=== PATIENT | female | born 1985 | race Caucasian/White ===

== ENCOUNTER 2020-12-20 17:44 | Emergency (ER) | payer MEDICAID, OTHER ==
[~2020-12-20] VITALS: Ht 160 cm; Wt 81.0 kg
[~2020-12-20 17:44] MED LIST: LEVO500T2 PO; TAM75 PO
[2020-12-20 17:57] VITALS: BP 113/72
== END 2020-12-20 18:55 | disposition left against medical advice (07) ==
LOC: ER 17:44
DX: Z53.21 Procedure and treatment not carried out due to patient leaving prior to being seen by health care provider (principal)

== ENCOUNTER 2020-12-24 12:28 | Inpatient (IN) | payer MEDICAID, OTHER ==
[~2020-12-24] VITALS: Ht 157.5 cm; Wt 77.6 kg
[2020-12-24 13:19] LABS: BG BASE EXCESS 2.7 mmol/L (-2.0-2.0); BG CARBOXYHEMOGLOBIN 0.3 % (0.5-1.5); BG DEOXYHEMOGLOBIN 6.7 % (0.0-5.0); BG FRACTION INSPIRED OXYGEN 36; BG HCO3 ACT 26.5 mmol/L (22.0-26.0); BG METHEMOGLOBIN 0.3 % (0.0-1.5); BG OXYGEN SATURATION 93.3 % (92.0-98.5); BG OXYHEMOGLOBIN 92.7 % (94.0-97.0); BG PCO2 37.4 mmHg (35.0-45.0); BG PH 7.468 (7.350-7.450); BG PO2 66.5 mmHg (75.0-100.0); BG SAMPLE SITE RIGHT RADIAL; BG TOTAL HEMOGLOBIN 9.9 g/dL (12.0-18.0); BG VENT MODE NASAL CANNULA
[2020-12-24] MEDS ORDERED: SODIUM CHLORIDE 0.9% 1,000 ML IV ONE (13:30)
[2020-12-24 14:07] LABS: CHLORIDE 99 mEq/L (98-107)
[2020-12-24 14:15] LABS: BASOPHILS % 0.2 % (0.0-2.0); HEMATOCRIT. 28.9 % (36.0-48.0); HEMOGLOBIN. 9.1 g/dL (12.0-16.0); LYMPHOCYTES % 23.5 % (20.0-50.0); MEAN CORPUSCULAR HEMOGLOBIN 18.6 pg (28.0-32.0); MEAN PLATELET VOLUME 9.4 fl (7.4-10.4); MONOCYTES % 3.9 % (2.0-8.0); NEUTROPHILS % 72.4 % (40.0-76.0); PLATELET 202 x1000/uL (130-400); RED CELL DISTRIBUTION WIDTH 18.6 % (11.6-14.6)
[2020-12-24] MEDS ORDERED: DEXAMETHASONE 4MG/ML 1ML VIAL IV ONE (14:45)
[2020-12-24 15:57] LABS: PLATELET ESTIMATE NORMAL
[2020-12-24] MEDS: ACETAMINOPHEN 325MG TABLET PO PRN (16:50)
[2020-12-24] MEDS ORDERED: ACETAMINOPHEN 325MG TABLET PO PRN (18:00)
[2020-12-24] MEDS ORDERED: MAGNESIUM/ALUMINUM HYDROXIDE/SIMETHICONE 30ML UDC PO PRN (18:00)
[2020-12-24] MEDS ORDERED: CLONIDINE 0.1MG TABLET PO PRN (18:00)
[2020-12-24] MEDS ORDERED: LORAZEPAM 2MG/ML CPJ IV PRN (18:00)
[2020-12-24] MEDS ORDERED: DOCUSATE SODIUM 100MG CAPSULE PO PRN (18:00)
[2020-12-24] MEDS ORDERED: ONDANSETRON HCL 4MG/2ML INJ IV PRN (18:00)
[2020-12-24] MEDS ORDERED: AZITHROMYCIN 500 MG in DEXT 5% WATER 250 ML IV NR (18:15)
[2020-12-24] MEDS ORDERED: CEFTRIAXONE 1 G PREMIX 50 ML IV SCH (19:00)
[2020-12-24] MEDS ORDERED: NALOXONE HCL 0.4MG/ML VIAL IV PRN (19:15)
[2020-12-24] MEDS: ENOXAPARIN 30MG/0.3ML SYR SUBCUT SCH (21:00)
[2020-12-24 21:15] VITALS: BP 118/72
[2020-12-24] MEDS: HYDROCODONE/ACETAMINOPHEN 5/325MG TABLET PO PRN (22:41)
[2020-12-25 00:05] VITALS: BP 101/58
[2020-12-25 04:00] VITALS: BP 103/64
[2020-12-25] MEDS: HYDROCODONE/ACETAMINOPHEN 5/325MG TABLET PO PRN ×4 (07:41→23:41)
[2020-12-25 07:59] LABS: BASOPHILS % 0.1 % (0.0-2.0); HEMATOCRIT. 28.2 % (36.0-48.0); HEMOGLOBIN. 8.7 g/dL (12.0-16.0); LYMPHOCYTES % 14.4 % (20.0-50.0); MEAN CORPUSCULAR HEMOGLOBIN 18.5 pg (28.0-32.0); MEAN CORPUSCULAR VOLUME 59.5 fL (81.0-99.0); MEAN PLATELET VOLUME 9.1 fl (7.4-10.4); MONOCYTES % 5.4 % (2.0-8.0); NEUTROPHILS % 80.1 % (40.0-76.0); PLATELET 205 x1000/uL (130-400); RED BLOOD CELL COUNT 4.73 mill/uL (4.2-5.4); RED CELL DISTRIBUTION WIDTH 18.9 % (11.6-14.6)
[2020-12-25 08:00] VITALS: BP 98/58
[2020-12-25] MEDS: AZITHROMYCIN 500MG in DEXTROSE 5% WATER 250ML IV SCH (08:11)
[2020-12-25] MEDS: ENOXAPARIN 30MG/0.3ML SYR SUBCUT SCH ×2 (08:11→21:00)
[2020-12-25] MEDS: CEFTRIAXONE 1,000 MG in DEXTROSE 5% WATER 50 ML IV SCH (08:11)
[2020-12-25] MEDS: DEXAMETHASONE 10 MG/ML VIAL IV SCH (08:11)
[2020-12-25 08:16] LABS: CHLORIDE 103 mEq/L (98-107)
[2020-12-25] MEDS ORDERED: THROAT LOZENGES-BENZOCAINE/MENTH/CETYLPYRD CL LOZENGES MM PRN (09:15)
[2020-12-25 09:51] LABS: BG BASE EXCESS 0.7 mmol/L (-2.0-2.0); BG CARBOXYHEMOGLOBIN 0.3 % (0.5-1.5); BG DEOXYHEMOGLOBIN 26.2 % (0.0-5.0); BG FRACTION INSPIRED OXYGEN 21; BG HCO3 ACT 24.8 mmol/L (22.0-26.0); BG METHEMOGLOBIN 0.5 % (0.0-1.5); BG OXYGEN SATURATION 73.6 % (92.0-98.5); BG PCO2 37.4 mmHg (35.0-45.0); BG PH 7.439 (7.350-7.450); BG TOTAL HEMOGLOBIN 9.5 g/dL (12.0-18.0); BG VENT MODE ROOM AIR
[2020-12-25 12:00] VITALS: BP 105/65
[2020-12-25] MEDS: ACETAMINOPHEN 325MG TABLET PO PRN (13:34)
[2020-12-25 16:00] VITALS: BP 106/58
[2020-12-25 20:00] VITALS: BP 109/67
[2020-12-25] MEDS: ALBUTEROL 6.7GM HFA INHALER ORI PRN (23:47)
[2020-12-26 00:21] VITALS: BP 116/69
[2020-12-26] MEDS: HYDROCODONE/ACETAMINOPHEN 5/325MG TABLET PO PRN ×2 (03:26→08:39)
[2020-12-26 04:00] VITALS: BP 107/65
[2020-12-26] MEDS: ACETAMINOPHEN 325MG TABLET PO PRN ×2 (05:46→14:30)
[2020-12-26 08:00] VITALS: BP 111/60
[2020-12-26] MEDS: AZITHROMYCIN 500MG in DEXTROSE 5% WATER 250ML IV SCH (08:03)
[2020-12-26] MEDS: ALBUTEROL 6.7GM HFA INHALER ORI PRN ×2 (08:03→14:36)
[2020-12-26] MEDS: CEFTRIAXONE 1,000 MG in DEXTROSE 5% WATER 50 ML IV SCH (08:03)
[2020-12-26] MEDS: ENOXAPARIN 30MG/0.3ML SYR SUBCUT SCH ×3 (08:04→21:02)
[2020-12-26] MEDS: DEXAMETHASONE 10 MG/ML VIAL IV SCH (08:04)
[2020-12-26 12:00] VITALS: BP 111/60
[2020-12-26] MEDS ORDERED: DEXTROSE 50% WATER 50ML SYRINGE IV PRN (13:15)
[2020-12-26] MEDS: BLOOD SUGAR DIAGNOSTIC STRIP TEST SCH ×3 (13:30→21:04)
[2020-12-26] MEDS: GUAIFENESIN 200MG/10ML SUGAR FREE UDC PO PRN (14:36)
[2020-12-26] MEDS: INSULIN LISPRO 100 UNITS/ML SUBCUT SCH ×3 (15:47→21:06)
[2020-12-26 16:00] VITALS: BP 121/63
[2020-12-26 20:00] VITALS: BP 103/66
[2020-12-26] MEDS: INSULIN GLARGINE UD 100 UNITS/ML SYR SUBCUT SCH (21:03)
[2020-12-27] VITALS: BP 108/57
[2020-12-27 04:00] VITALS: BP 97/52
[2020-12-27] MEDS: BLOOD SUGAR DIAGNOSTIC STRIP TEST SCH ×4 (08:07→21:00)
[2020-12-27] MEDS: AZITHROMYCIN 500MG in DEXTROSE 5% WATER 250ML IV SCH (08:32)
[2020-12-27] MEDS: CEFTRIAXONE 1,000 MG in DEXTROSE 5% WATER 50 ML IV SCH (08:32)
[2020-12-27] MEDS: ENOXAPARIN 30MG/0.3ML SYR SUBCUT SCH ×2 (08:33→22:02)
[2020-12-27] MEDS: ACETAMINOPHEN 325MG TABLET PO PRN ×2 (08:35→14:31)
[2020-12-27] MEDS: DEXAMETHASONE 10 MG/ML VIAL IV SCH (09:00)
[2020-12-27] MEDS: INSULIN LISPRO 100 UNITS/ML SUBCUT SCH ×4 (10:16→22:04)
[2020-12-27 12:00] VITALS: BP 111/72
[2020-12-27] MEDS: GUAIFENESIN 200MG/10ML SUGAR FREE UDC PO PRN (14:30)
[2020-12-27 20:00] VITALS: BP 110/70
[2020-12-27] MEDS: INSULIN GLARGINE UD 100 UNITS/ML SYR SUBCUT SCH (22:03)
[2020-12-27] MEDS: HYDROCODONE/ACETAMINOPHEN 5/325MG TABLET PO PRN (23:13)
[2020-12-28] VITALS: BP 100/55
[2020-12-28 04:00] VITALS: BP 97/50
[2020-12-28 08:00] VITALS: BP 108/52
[2020-12-28] MEDS: BLOOD SUGAR DIAGNOSTIC STRIP TEST SCH ×4 (08:31→20:56)
[2020-12-28] MEDS: AZITHROMYCIN 500MG in DEXTROSE 5% WATER 250ML IV SCH (08:57)
[2020-12-28] MEDS: CEFTRIAXONE 1,000 MG in DEXTROSE 5% WATER 50 ML IV SCH (08:57)
[2020-12-28] MEDS: DEXAMETHASONE 10 MG/ML VIAL IV SCH (08:58)
[2020-12-28] MEDS: ACETAMINOPHEN 325MG TABLET PO PRN ×2 (08:58→17:28)
[2020-12-28] MEDS: ENOXAPARIN 30MG/0.3ML SYR SUBCUT SCH ×2 (08:58→20:56)
[2020-12-28] MEDS: INSULIN LISPRO 100 UNITS/ML SUBCUT SCH ×4 (09:00→20:56)
[2020-12-28] MEDS: GUAIFENESIN 200MG/10ML SUGAR FREE UDC PO PRN ×2 (09:03→17:28)
[2020-12-28] MEDS: HYDROCODONE/ACETAMINOPHEN 5/325MG TABLET PO PRN (09:04)
[2020-12-28 12:00] VITALS: BP 109/51
[2020-12-28 16:00] VITALS: BP 113/64
[2020-12-28 20:00] VITALS: BP 105/63
[2020-12-28] MEDS: INSULIN GLARGINE UD 100 UNITS/ML SYR SUBCUT SCH (20:57)
[2020-12-29] VITALS: BP 110/62
[2020-12-29] MEDS: HYDROCODONE/ACETAMINOPHEN 5/325MG TABLET PO PRN ×3 (00:23→20:49)
[2020-12-29 04:00] VITALS: BP 95/55
[2020-12-29] MEDS: BLOOD SUGAR DIAGNOSTIC STRIP TEST SCH ×4 (06:04→20:37)
[2020-12-29] MEDS: ACETAMINOPHEN 325MG TABLET PO PRN ×2 (07:53→20:48)
[2020-12-29] MEDS: INSULIN LISPRO 100 UNITS/ML SUBCUT SCH ×4 (07:54→20:39)
[2020-12-29] MEDS: DEXAMETHASONE 10 MG/ML VIAL IV SCH (07:54)
[2020-12-29] MEDS: ENOXAPARIN 30MG/0.3ML SYR SUBCUT SCH ×2 (07:54→20:37)
[2020-12-29] MEDS: GUAIFENESIN 200MG/10ML SUGAR FREE UDC PO PRN (07:55)
[2020-12-29 16:00] VITALS: BP 97/41
[2020-12-29 20:00] VITALS: BP 117/68
[2020-12-29] MEDS: INSULIN GLARGINE UD 100 UNITS/ML SYR SUBCUT SCH (20:38)
[2020-12-30] VITALS: BP 126/61
[2020-12-30 04:00] VITALS: BP 125/66
[2020-12-30] MEDS: HYDROCODONE/ACETAMINOPHEN 5/325MG TABLET PO PRN (04:34)
[2020-12-30] MEDS: BLOOD SUGAR DIAGNOSTIC STRIP TEST SCH ×4 (06:41→21:20)
[2020-12-30 08:00] VITALS: BP 106/50
[2020-12-30] MEDS: INSULIN LISPRO 100 UNITS/ML SUBCUT SCH ×4 (08:10→21:21)
[2020-12-30] MEDS: ALBUTEROL 6.7GM HFA INHALER ORI PRN ×2 (08:45→21:28)
[2020-12-30] MEDS: ENOXAPARIN 30MG/0.3ML SYR SUBCUT SCH ×2 (09:49→21:21)
[2020-12-30] MEDS: ACETAMINOPHEN 325MG TABLET PO PRN ×2 (09:49→14:10)
[2020-12-30] MEDS: DEXAMETHASONE 10 MG/ML VIAL IV SCH (09:49)
[2020-12-30] MEDS: GUAIFENESIN 200MG/10ML SUGAR FREE UDC PO PRN ×2 (09:49→14:07)
[2020-12-30 12:00] VITALS: BP 110/58
[2020-12-30 16:00] VITALS: BP 102/53
[2020-12-30 20:42] VITALS: BP 112/52
[2020-12-30] MEDS: INSULIN GLARGINE UD 100 UNITS/ML SYR SUBCUT SCH (21:21)
[2020-12-31 00:19] VITALS: BP 110/64
[2020-12-31] MEDS: ALBUTEROL 6.7GM HFA INHALER ORI PRN (00:59)
[2020-12-31] MEDS: HYDROCODONE/ACETAMINOPHEN 5/325MG TABLET PO PRN (03:59)
[2020-12-31 04:00] VITALS: BP 98/43
[2020-12-31 06:42] LABS: HEMOGLOBIN. 8.3 g/dL (12.0-16.0); MEAN CORPUSCULAR HEMOGLOBIN 18.5 pg (28.0-32.0); MEAN CORPUSCULAR VOLUME 60.1 fL (81.0-99.0); MEAN PLATELET VOLUME 8.8 fl (7.4-10.4); PLATELET 461 x1000/uL (130-400); RED CELL DISTRIBUTION WIDTH 19.2 % (11.6-14.6)
[2020-12-31 07:00] LABS: CHLORIDE 103 mEq/L (98-107)
[2020-12-31] MEDS: BLOOD SUGAR DIAGNOSTIC STRIP TEST SCH ×4 (07:40→20:53)
[2020-12-31 08:00] VITALS: BP 107/56
[2020-12-31] MEDS: INSULIN LISPRO 100 UNITS/ML SUBCUT SCH ×4 (08:10→21:00)
[2020-12-31] MEDS: ENOXAPARIN 30MG/0.3ML SYR SUBCUT SCH (09:00)
[2020-12-31] MEDS: DEXAMETHASONE 10 MG/ML VIAL IV SCH (09:58)
[2020-12-31] MEDS: POTASSIUM CHLORIDE 20MEQ TABLET SR PO SCH (09:58)
[2020-12-31] MEDS: GUAIFENESIN 200MG/10ML SUGAR FREE UDC PO PRN (09:59)
[2020-12-31 12:00] VITALS: BP 111/59
[2020-12-31] MEDS: ACETAMINOPHEN 325MG TABLET PO PRN ×2 (12:30→19:33)
[2020-12-31 16:00] VITALS: BP 106/53
[2020-12-31 17:51] LABS: PLATELET ESTIMATE INCREASED
[2020-12-31 20:00] VITALS: BP 106/50
[2020-12-31] MEDS: ENOXAPARIN 40MG/0.4ML SYR SUBCUT SCH (20:53)
[2020-12-31] MEDS: INSULIN GLARGINE UD 100 UNITS/ML SYR SUBCUT SCH (21:03)
[2021-01-01 00:05] VITALS: BP 103/61
[2021-01-01] MEDS: HYDROCODONE/ACETAMINOPHEN 5/325MG TABLET PO PRN ×2 (03:29→22:22)
[2021-01-01 04:00] VITALS: BP 109/53
[2021-01-01] MEDS: INSULIN LISPRO 100 UNITS/ML SUBCUT SCH ×4 (05:21→20:58)
[2021-01-01] MEDS: BLOOD SUGAR DIAGNOSTIC STRIP TEST SCH ×4 (05:21→20:34)
[2021-01-01 08:00] VITALS: BP 101/61
[2021-01-01] MEDS: POTASSIUM CHLORIDE 20MEQ TABLET SR PO SCH (10:17)
[2021-01-01] MEDS: DEXAMETHASONE 10 MG/ML VIAL IV SCH (10:17)
[2021-01-01 12:00] VITALS: BP 105/60
[2021-01-01 16:00] VITALS: BP 106/54
[2021-01-01 20:00] VITALS: BP 108/65
[2021-01-01] MEDS: ENOXAPARIN 40MG/0.4ML SYR SUBCUT SCH (20:34)
[2021-01-01] MEDS: INSULIN GLARGINE UD 100 UNITS/ML SYR SUBCUT SCH (22:15)
[2021-01-02] VITALS (9 sets, daily range): BP systolic 98–113; BP diastolic 45–63
[2021-01-02] MEDS: INSULIN LISPRO 100 UNITS/ML SUBCUT SCH ×4 (05:34→21:52)
[2021-01-02] MEDS: BLOOD SUGAR DIAGNOSTIC STRIP TEST SCH ×4 (05:34→21:41)
[2021-01-02] MEDS: DEXAMETHASONE 10 MG/ML VIAL IV SCH (08:04)
[2021-01-02] MEDS: POTASSIUM CHLORIDE 20MEQ TABLET SR PO SCH (08:04)
[2021-01-02] MEDS: ACETAMINOPHEN 325MG TABLET PO PRN (08:04)
[2021-01-02] MEDS: ENOXAPARIN 40MG/0.4ML SYR SUBCUT SCH (21:51)
[2021-01-02] MEDS: INSULIN GLARGINE UD 100 UNITS/ML SYR SUBCUT SCH (21:52)
[2021-01-02] MEDS: HYDROCODONE/ACETAMINOPHEN 5/325MG TABLET PO PRN (21:54)
[2021-01-02] MEDS ORDERED: NALOXONE HCL 0.4MG/ML VIAL IV PRN (22:15)
[2021-01-03] VITALS (12 sets, daily range): BP systolic 90–112; BP diastolic 39–78
[2021-01-03 06:33] LABS: CHLORIDE 103 mEq/L (98-107)
[2021-01-03] MEDS: BLOOD SUGAR DIAGNOSTIC STRIP TEST SCH ×4 (06:43→20:51)
[2021-01-03 06:58] LABS: BASOPHILS % 0.3 % (0.0-2.0); EOSINOPHILS % 2.4 % (0.0-5.0); HEMATOCRIT. 27.2 % (36.0-48.0); HEMOGLOBIN. 8.4 g/dL (12.0-16.0); LYMPHOCYTES % 26.7 % (20.0-50.0); MEAN CORPUSCULAR HEMOGLOBIN 19.1 pg (28.0-32.0); MEAN CORPUSCULAR VOLUME 61.5 fL (81.0-99.0); MEAN PLATELET VOLUME 8.6 fl (7.4-10.4); MONOCYTES % 4.5 % (2.0-8.0); NEUTROPHILS % 66.1 % (40.0-76.0); PLATELET 522 x1000/uL (130-400); RED BLOOD CELL COUNT 4.42 mill/uL (4.2-5.4); RED CELL DISTRIBUTION WIDTH 19.5 % (11.6-14.6)
[2021-01-03] MEDS: INSULIN LISPRO 100 UNITS/ML SUBCUT SCH ×4 (07:20→20:57)
[2021-01-03] MEDS: DEXAMETHASONE 10 MG/ML VIAL IV SCH (10:32)
[2021-01-03] MEDS: POTASSIUM CHLORIDE 20MEQ TABLET SR PO SCH (10:32)
[2021-01-03] MEDS: ACETAMINOPHEN 325MG TABLET PO PRN ×2 (13:33→20:56)
[2021-01-03] MEDS: ENOXAPARIN 40MG/0.4ML SYR SUBCUT SCH (20:56)
[2021-01-03] MEDS: INSULIN GLARGINE UD 100 UNITS/ML SYR SUBCUT SCH (22:07)
[2021-01-04] VITALS (12 sets, daily range): BP systolic 90–122; BP diastolic 44–72
[2021-01-04] MEDS: BLOOD SUGAR DIAGNOSTIC STRIP TEST SCH ×4 (06:02→20:56)
[2021-01-04] MEDS: INSULIN LISPRO 100 UNITS/ML SUBCUT SCH ×4 (06:46→21:04)
[2021-01-04] MEDS: POTASSIUM CHLORIDE 20MEQ TABLET SR PO SCH (09:00)
[2021-01-04] MEDS: DEXAMETHASONE 10 MG/ML VIAL IV SCH (09:33)
[2021-01-04] MEDS: ENOXAPARIN 40MG/0.4ML SYR SUBCUT SCH (21:00)
[2021-01-04] MEDS: INSULIN GLARGINE UD 100 UNITS/ML SYR SUBCUT SCH (21:03)
[2021-01-05] VITALS (10 sets, daily range): BP systolic 94–110; BP diastolic 45–60
[2021-01-05] MEDS: BLOOD SUGAR DIAGNOSTIC STRIP TEST SCH ×4 (06:22→21:00)
[2021-01-05] MEDS: INSULIN LISPRO 100 UNITS/ML SUBCUT SCH ×4 (06:23→22:07)
[2021-01-05 07:10] LABS: CHLORIDE 102 mEq/L (98-107)
[2021-01-05 07:27] LABS: BASOPHILS % 0.8 % (0.0-2.0); EOSINOPHILS % 1.9 % (0.0-5.0); HEMATOCRIT. 28.2 % (36.0-48.0); HEMOGLOBIN. 8.7 g/dL (12.0-16.0); LYMPHOCYTES % 30.8 % (20.0-50.0); MEAN CORPUSCULAR HEMOGLOBIN 19.2 pg (28.0-32.0); MEAN CORPUSCULAR VOLUME 62.2 fL (81.0-99.0); MEAN PLATELET VOLUME 8.5 fl (7.4-10.4); MONOCYTES % 4.8 % (2.0-8.0); NEUTROPHILS % 61.7 % (40.0-76.0); PLATELET 632 x1000/uL (130-400); RED BLOOD CELL COUNT 4.54 mill/uL (4.2-5.4); RED CELL DISTRIBUTION WIDTH 19.5 % (11.6-14.6)
[2021-01-05] MEDS: POTASSIUM CHLORIDE 20MEQ TABLET SR PO SCH (09:47)
[2021-01-05] MEDS: DEXAMETHASONE 10 MG/ML VIAL IV SCH (09:47)
[2021-01-05] MEDS: ACETAMINOPHEN 325MG TABLET PO PRN (09:51)
[2021-01-05] MEDS: ENOXAPARIN 40MG/0.4ML SYR SUBCUT SCH (22:07)
[2021-01-05] MEDS: INSULIN GLARGINE UD 100 UNITS/ML SYR SUBCUT SCH (22:08)
[2021-01-06] VITALS (10 sets, daily range): BP systolic 101–118; BP diastolic 27–72
[2021-01-06] MEDS: BLOOD SUGAR DIAGNOSTIC STRIP TEST SCH ×4 (06:31→21:14)
[2021-01-06] MEDS: INSULIN LISPRO 100 UNITS/ML SUBCUT SCH ×4 (07:20→22:01)
[2021-01-06] MEDS: DEXAMETHASONE 10 MG/ML VIAL IV SCH (09:38)
[2021-01-06] MEDS: POTASSIUM CHLORIDE 20MEQ TABLET SR PO SCH (09:38)
[2021-01-06] MEDS: POLYETHYLENE GLYCOL 3350 (17GM) 1 DOSE PACK PO SCH (17:30)
[2021-01-06] MEDS: ENOXAPARIN 40MG/0.4ML SYR SUBCUT SCH (22:00)
[2021-01-06] MEDS: INSULIN GLARGINE UD 100 UNITS/ML SYR SUBCUT SCH (22:01)
[2021-01-07] VITALS (12 sets, daily range): BP systolic 92–123; BP diastolic 42–71
[2021-01-07] MEDS: BLOOD SUGAR DIAGNOSTIC STRIP TEST SCH ×4 (06:53→21:09)
[2021-01-07] MEDS: INSULIN LISPRO 100 UNITS/ML SUBCUT SCH ×4 (07:20→21:38)
[2021-01-07] MEDS: DEXAMETHASONE 10 MG/ML VIAL IV SCH (09:46)
[2021-01-07] MEDS: POTASSIUM CHLORIDE 20MEQ TABLET SR PO SCH (09:46)
[2021-01-07] MEDS: POLYETHYLENE GLYCOL 3350 (17GM) 1 DOSE PACK PO SCH (09:46)
[2021-01-07] MEDS: ENOXAPARIN 40MG/0.4ML SYR SUBCUT SCH (21:09)
[2021-01-07] MEDS: INSULIN GLARGINE UD 100 UNITS/ML SYR SUBCUT SCH (21:38)
[2021-01-08] VITALS (12 sets, daily range): BP systolic 92–115; BP diastolic 44–76
[2021-01-08] MEDS: INSULIN LISPRO 100 UNITS/ML SUBCUT SCH ×4 (06:34→21:47)
[2021-01-08] MEDS: BLOOD SUGAR DIAGNOSTIC STRIP TEST SCH ×4 (06:34→21:47)
[2021-01-08] MEDS: POTASSIUM CHLORIDE 20MEQ TABLET SR PO SCH (09:00)
[2021-01-08] MEDS: POLYETHYLENE GLYCOL 3350 (17GM) 1 DOSE PACK PO SCH (09:00)
[2021-01-08] MEDS: DEXAMETHASONE 10 MG/ML VIAL IV SCH (09:18)
[2021-01-08] MEDS: IPRATROPIUM/ALBUTEROL 0.5-3(2.5)MG/3ML NEB HHN SCH (20:28)
[2021-01-08] MEDS: ENOXAPARIN 40MG/0.4ML SYR SUBCUT SCH (21:42)
[2021-01-08] MEDS: INSULIN GLARGINE UD 100 UNITS/ML SYR SUBCUT SCH (21:47)
[2021-01-09] VITALS (12 sets, daily range): BP systolic 90–131; BP diastolic 43–62
[2021-01-09] MEDS: IPRATROPIUM/ALBUTEROL 0.5-3(2.5)MG/3ML NEB HHN SCH ×4 (01:20→20:29)
[2021-01-09] MEDS: BLOOD SUGAR DIAGNOSTIC STRIP TEST SCH ×4 (06:17→21:07)
[2021-01-09] MEDS: INSULIN LISPRO 100 UNITS/ML SUBCUT SCH ×4 (07:20→21:18)
[2021-01-09] MEDS: POTASSIUM CHLORIDE 20MEQ TABLET SR PO SCH (08:44)
[2021-01-09] MEDS: DEXAMETHASONE 10 MG/ML VIAL IV SCH (08:44)
[2021-01-09] MEDS: POLYETHYLENE GLYCOL 3350 (17GM) 1 DOSE PACK PO SCH (08:46)
[2021-01-09 13:34] LABS: BG BASE EXCESS 0.4 mmol/L (-2.0-2.0); BG CARBOXYHEMOGLOBIN 0.3 % (0.5-1.5); BG DEOXYHEMOGLOBIN 4.6 % (0.0-5.0); BG FRACTION INSPIRED OXYGEN 40; BG METHEMOGLOBIN 0.3 % (0.0-1.5); BG OXYGEN SATURATION 95.4 % (92.0-98.5); BG OXYHEMOGLOBIN 94.8 % (94.0-97.0); BG PCO2 40.2 mmHg (35.0-45.0); BG PH 7.411 (7.350-7.450); BG PO2 81.9 mmHg (75.0-100.0); BG SAMPLE SITE RIGHT RADIAL; BG TOTAL HEMOGLOBIN 10.2 g/dL (12.0-18.0); BG VENT MODE NASAL CANNULA
[2021-01-09] MEDS: ENOXAPARIN 40MG/0.4ML SYR SUBCUT SCH (21:08)
[2021-01-09] MEDS: INSULIN GLARGINE UD 100 UNITS/ML SYR SUBCUT SCH (21:10)
[2021-01-10] VITALS (12 sets, daily range): BP systolic 92–121; BP diastolic 42–62
[2021-01-10] MEDS: IPRATROPIUM/ALBUTEROL 0.5-3(2.5)MG/3ML NEB HHN SCH ×3 (02:19→14:20)
[2021-01-10] MEDS: BLOOD SUGAR DIAGNOSTIC STRIP TEST SCH ×4 (06:43→20:37)
[2021-01-10] MEDS: INSULIN LISPRO 100 UNITS/ML SUBCUT SCH ×4 (06:44→21:25)
[2021-01-10] MEDS: DEXAMETHASONE 10 MG/ML VIAL IV SCH (08:29)
[2021-01-10] MEDS: POLYETHYLENE GLYCOL 3350 (17GM) 1 DOSE PACK PO SCH (08:29)
[2021-01-10] MEDS: POTASSIUM CHLORIDE 20MEQ TABLET SR PO SCH (08:29)
[2021-01-10 14:37] LABS: BG BASE EXCESS -0.7 mmol/L (-2.0-2.0); BG CARBOXYHEMOGLOBIN 0.6 % (0.5-1.5); BG DEOXYHEMOGLOBIN 22.5 % (0.0-5.0); BG HCO3 ACT 23.2 mmol/L (22.0-26.0); BG METHEMOGLOBIN 0.3 % (0.0-1.5); BG OXYGEN SATURATION 77.3 % (92.0-98.5); BG OXYHEMOGLOBIN 76.6 % (94.0-97.0); BG PCO2 35.4 mmHg (35.0-45.0); BG PH 7.435 (7.350-7.450); BG PO2 44.4 mmHg (75.0-100.0); BG SAMPLE SITE RIGHT RADIAL; BG TOTAL HEMOGLOBIN 10.2 g/dL (12.0-18.0); BG VENT MODE ROOM AIR
[2021-01-10] MEDS: INSULIN GLARGINE UD 100 UNITS/ML SYR SUBCUT SCH (21:25)
[2021-01-10] MEDS: ENOXAPARIN 40MG/0.4ML SYR SUBCUT SCH (21:25)
[2021-01-11] VITALS (10 sets, daily range): BP systolic 92–159; BP diastolic 42–104
[2021-01-11] MEDS: BLOOD SUGAR DIAGNOSTIC STRIP TEST SCH ×4 (06:05→20:17)
[2021-01-11] MEDS: INSULIN LISPRO 100 UNITS/ML SUBCUT SCH ×4 (07:20→20:18)
[2021-01-11] MEDS: IPRATROPIUM/ALBUTEROL 0.5-3(2.5)MG/3ML NEB HHN SCH ×3 (07:54→20:37)
[2021-01-11] MEDS: POTASSIUM CHLORIDE 20MEQ TABLET SR PO SCH (08:38)
[2021-01-11] MEDS: DEXAMETHASONE 10 MG/ML VIAL IV SCH (08:39)
[2021-01-11] MEDS: POLYETHYLENE GLYCOL 3350 (17GM) 1 DOSE PACK PO SCH (08:39)
[2021-01-11] MEDS: ENOXAPARIN 40MG/0.4ML SYR SUBCUT SCH (20:20)
[2021-01-11] MEDS: INSULIN GLARGINE UD 100 UNITS/ML SYR SUBCUT SCH (22:01)
[2021-01-12] VITALS (12 sets, daily range): BP systolic 93–111; BP diastolic 44–75
[2021-01-12] MEDS: IPRATROPIUM/ALBUTEROL 0.5-3(2.5)MG/3ML NEB HHN SCH ×4 (02:35→21:16)
[2021-01-12] MEDS: BLOOD SUGAR DIAGNOSTIC STRIP TEST SCH ×4 (06:16→21:07)
[2021-01-12] MEDS: INSULIN LISPRO 100 UNITS/ML SUBCUT SCH ×4 (07:20→21:05)
[2021-01-12] MEDS: POTASSIUM CHLORIDE 20MEQ TABLET SR PO SCH (08:27)
[2021-01-12] MEDS: DEXAMETHASONE 10 MG/ML VIAL IV SCH (08:27)
[2021-01-12] MEDS: POLYETHYLENE GLYCOL 3350 (17GM) 1 DOSE PACK PO SCH (08:28)
[2021-01-12] MEDS: INSULIN GLARGINE UD 100 UNITS/ML SYR SUBCUT SCH (21:06)
[2021-01-12] MEDS: ENOXAPARIN 40MG/0.4ML SYR SUBCUT SCH (21:23)
[2021-01-13] VITALS (7 sets, daily range): BP systolic 93–109; BP diastolic 44–68
[2021-01-13] MEDS: IPRATROPIUM/ALBUTEROL 0.5-3(2.5)MG/3ML NEB HHN SCH ×4 (03:19→21:37)
[2021-01-13] MEDS: BLOOD SUGAR DIAGNOSTIC STRIP TEST SCH ×4 (06:30→20:35)
[2021-01-13] MEDS: POTASSIUM CHLORIDE 20MEQ TABLET SR PO SCH (08:01)
[2021-01-13] MEDS: INSULIN LISPRO 100 UNITS/ML SUBCUT SCH ×4 (08:02→21:28)
[2021-01-13] MEDS: POLYETHYLENE GLYCOL 3350 (17GM) 1 DOSE PACK PO SCH (08:02)
[2021-01-13 12:06] LABS: BG BASE EXCESS 3.9 mmol/L (-2.0-2.0); BG CARBOXYHEMOGLOBIN 0.4 % (0.5-1.5); BG FRACTION INSPIRED OXYGEN 21; BG METHEMOGLOBIN 0.2 % (0.0-1.5); BG OXYGEN SATURATION 73.8 % (92.0-98.5); BG OXYHEMOGLOBIN 73.4 % (94.0-97.0); BG PCO2 40.5 mmHg (35.0-45.0); BG PH 7.458 (7.350-7.450); BG PO2 40.1 mmHg (75.0-100.0); BG SAMPLE SITE RIGHT RADIAL; BG TOTAL HEMOGLOBIN 9.6 g/dL (12.0-18.0); BG VENT MODE ROOM AIR
[2021-01-13] MEDS: INSULIN GLARGINE UD 100 UNITS/ML SYR SUBCUT SCH (21:28)
[2021-01-13] MEDS: ENOXAPARIN 40MG/0.4ML SYR SUBCUT SCH (21:29)
== END 2021-01-13 23:04 | disposition left against medical advice (07) | DRG 720 ==
LOC: ER 12:39 → MICUSO 15:29 → EDBEDREQTM 15:41 → EDBEDREQ 15:41 → 7WST 20:35 → 3WST 01-02 21:06
PROVIDERS: ADMIT Hospitalist; ATTEND Hospitalist
DX: A41.89 Other specified sepsis (principal); J96.01 Acute respiratory failure with hypoxia; J12.82 Pneumonia due to coronavirus disease 2019; E43 Unspecified severe protein-calorie malnutrition; U07.1 COVID-19; D64.9 Anemia, unspecified; E66.9 Obesity, unspecified; R26.9 Unspecified abnormalities of gait and mobility; R74.01 Elevation of levels of liver transaminase levels; E11.65 Type 2 diabetes mellitus with hyperglycemia; J20.8 Acute bronchitis due to other specified organisms; Z82.49 Family history of ischemic heart disease and other diseases of the circulatory system; Z79.899 Other long term (current) drug therapy; Z68.31 Body mass index [BMI] 31.0-31.9, adult; Z56.0 Unemployment, unspecified
CPT/HCPCS: 36415; 36600; 71045; 80048; 80053; 82375; 82728; 82805; 82962; 83036; 83615; 83880; 84484; 85025; 85379; 86140; 87426; 93005; 94640; 97116; 97162; 97164; 97166; 99291; J0456; J0696; J1100; J1650; J1815; J7030; J7040; J7042; J7060; U0003; U0005

== ENCOUNTER 2023-02-17 00:48 | Emergency (ER) | payer MEDICAID, OTHER ==
[~2023-02-17] VITALS: Ht 154.9 cm; Wt 74.0 kg
[~2023-02-17 00:48] MED LIST changes: +FERR-63 PO; +LEVO-65 PO; -LEVO500T2 PO
[2023-02-17 01:01] VITALS: BP 116/57; PULSE 87; RESP 16; TEMP 99; O2SAT 99
[2023-02-17 01:30] LABS: CLARITY URINE CLOUDY (CLEAR); COLOR URINE YELLOW (YELLOW); GLUCOSE URINE 3+ (NEGATIVE); KETONES URINE NEGATIVE (NEGATIVE); LEUKOCYTE ESTERASE URINE NEGATIVE (NEGATIVE); NITRITE URINE NEGATIVE (NEGATIVE); OCCULT BLOOD URINE NEGATIVE (NEGATIVE); PH URINE 5.5 (4.5-8.0); PROTEIN URINE NEGATIVE (NEGATIVE); SPECIFIC GRAVITY URINE 1.026 (1.005-1.030); UROBILINOGEN URINE 0.2 E.U./dL (0.2-1.0)
[2023-02-17 01:34] LABS: BACTERIA URINE 1+; SQUAMOUS EPITHELIAL CELL URINE 1+ /lpf (RARE/1+); YEAST URINE NONE SEEN
[2023-02-17] MEDS ORDERED: KETOROLAC 30MG/ML VIAL IM ONE (02:00)
== END 2023-02-17 03:18 | disposition home or self-care (01) ==
LOC: ER 00:48
DX: N64.4 Mastodynia (principal); Z98.890 Other specified postprocedural states
CPT/HCPCS: 99284; 81003; 81025; 93005; 96372; J1885